=== PATIENT | male | born 1980 | race Caucasian/White ===

== ENCOUNTER 2018-06-01 19:33 | Emergency (ER) | payer SELFPAY ==
[~2018-06-01] VITALS: Ht 167.6 cm; Wt 117.0 kg
[2018-06-01 19:58] VITALS: BP 176/115
[2018-06-01] MEDS ORDERED: TETanus/Pertussis (Acell)/Diphther VAC/PF (Tdap-Adult) 0.5ml syringe IMVAC ONE (22:05)
--- NOTE | 2018-06-01 22:12 | NUR ---
SWABBED WOUND: OPEN AREA 1 CM REDDNESS ACCROSS ABDOMEN: 28 X 17 CM
--- NOTE | 2018-06-01 22:13 | NUR ---
TO ORDER IV ANTIBIOTICS
[2018-06-01] MEDS ORDERED: SULF1TAB49 PO (22:17)
[2018-06-01] MEDS ORDERED: CEPH500C5 PO (22:17)
[2018-06-01] MEDS ORDERED: vancomycin/NS 1 GM ADD-VANTAGE 250 ML IV ONE (22:20)
== END 2018-06-02 00:07 | disposition home or self-care (01) ==
LOC: ER 19:34
DX: L03.311 Cellulitis of abdominal wall (principal); R50.9 Fever, unspecified; N48.89 Other specified disorders of penis
CPT/HCPCS: 87070; 87077; 87186; 90471; 90715; 96365; 99283; J3370